=== PATIENT | male | born 1995 | race Caucasian/White ===

== ENCOUNTER 2017-04-30 15:52 | Emergency (ER) | payer BC ==
[~2017-04-30] VITALS: Ht 175.3 cm; Wt 109.1 kg
[2017-04-30 15:59] VITALS: BP 124/73; PULSE 84; TEMP 97.7
[2017-04-30] MEDS ORDERED: NORCO 325 MG-51 TAB PO (17:18)
== END 2017-04-30 17:58 | disposition home or self-care (01) ==
LOC: COL.ER 15:52
DX: S92.325A Nondisplaced fracture of second metatarsal bone, left foot, initial encounter for closed fracture (principal); S92.335A Nondisplaced fracture of third metatarsal bone, left foot, initial encounter for closed fracture; S92.345A Nondisplaced fracture of fourth metatarsal bone, left foot, initial encounter for closed fracture; W18.40XA Slipping, tripping and stumbling without falling, unspecified, initial encounter; X50.0XXA Overexertion from strenuous movement or load, initial encounter; Y93.67 Activity, basketball